=== PATIENT | female | born 1985 | race Caucasian/White ===

== ENCOUNTER 2021-03-20 16:46 | Emergency (ER) | payer OTHER ==
[~2021-03-20 16:46] MED LIST: OMNICEF 300 MG300 MG PO
[2021-03-20 18:45] LABS: HEMOGLOBIN 16.5 gm/dl (12.3-15.3); RED BLOOD COUNT 5.06 M/UL (4.00-5.10)
[2021-03-20 19:21] LABS: BUN/CREATININE RATIO 10 (0-10)
[2021-03-20] MEDS ORDERED: PROAIR DIGIHAL90 MCG INH (21:34)
[2021-03-20] MEDS ORDERED: ZOFRAN ODT 4 MG4 MG PO (21:34)
[2021-03-20] MEDS ORDERED: TESSALON PERLE100 MG PO (21:34)
[2021-03-20] MEDS ORDERED: IBUPROFEN800 MG PO (21:34)
== END 2021-03-20 22:11 | disposition home or self-care (01) ==
LOC: ER1 16:46
PROVIDERS: Emergency Medicine
DX: U07.1 COVID-19 (principal); N30.90 Cystitis, unspecified without hematuria
CPT/HCPCS: 71045; 80053; 81001; 82550; 82553; 83605; 83735; 83874; 84484; 84703; 85025; 87040; 96374; 96375; 99284; J0696; J1885; J2405; U0002